=== PATIENT | male | born 1965 | race Asian ===

== ENCOUNTER 2020-04-22 11:47 | Emergency (ER) | payer MEDICARE, SELFPAY ==
--- NOTE | 2020-04-22 | ECG_ITS ---
Test Reason : CHEST PAIN Blood Pressure : / mmHG Vent. Rate : 084 BPM Atrial Rate : 084 BPM P-R Int : 156 ms QRS Dur : 084 ms QT Int : 364 ms P-R-T Axes : 023 008 001 degrees QTc Int : 430 ms Normal sinus rhythm Normal ECG When compared with ECG of 25-APR-2012 06:54, No significant change was found Referred By: Generic ED Physician Electronically Signed By:COCO BOOTH MD
[2020-04-22 11:58] VITALS: BP 148/91; PULSE 84; RESP 18; TEMP 36.6; O2SAT 97; BMI 26.6
--- NOTE | 2020-04-22 13:20 | XR_ITS ---
EXAMINATION: XR CHEST CLINICAL INFORMATION: Chest pain COMPARISON: Chest radiographs 10/23/2018, 09/12/2017 TECHNIQUE: Portable upright AP view of the chest was obtained. FINDINGS: The lungs are clear. There is no pneumothorax, pleural reaction, airspace consolidation, or effusion. The heart is normal in size. The hilar and mediastinal contours are normal. No visible acute bony abnormality. XR/XR chest 1V IMPRESSION: Unremarkable examination.
--- NOTE | 2020-04-22 13:23 | ED.CHESTPAIN ---
HPI - Chest Pain General Chief Complaint: Chest Pain Stated Complaint: chest pain Time Seen by Provider: 04/22/20 13:20 Source: patient Mode of arrival: ambulatory Limitations: no limitations History of Present Illness HPI narrative: 54 y/o male with history of hyperlipidemia, never smoker and occasional drinker who presents with acute onset of substernal chest pain that started last night at 2-3am. It started when he woke up to go to the bathroom. He states it starts in his epigastric area and radiates up into his chest. No nausea, vomiting, abdominal pain, SOB, neck or jaw pain. No personal or family history of heart disease. He states he has a history of GERD but has not had symptoms in years. He ate lobster dipped in hot sauce last night. Related Data Previous Rx's Medication Instructions Recorded pantoprazole [Protonix] 40 mg PO DAILY #14 tab 04/22/20 Allergies Allergy/AdvReac Type Severity Reaction Status Date / Time codeine [Codeine] Allergy Mild NAUSEA AND Verified 04/22/20 12:02 VOMITING acetaminophen [Percocet] Allergy Unknown Itching Verified 04/22/20 12:02 oxycodone [Percocet] Allergy Unknown Itching Verified 04/22/20 12:02 Review of Systems Review of Systems: Constitutional: No Fever, No Chills ENT/Mouth: No sore throat, No Rhinorrhea, No Swallowing Difficulty Eyes: No Eye Pain, No Swelling, No Redness Cardiovascular: + Chest Pain, No SOB, No Orthopnea, No Edema Respiratory: No Cough, No Sputum, No Wheezing, No dyspnea Gastrointestinal: No Nausea, No Vomiting, No Diarrhea, No abdominal Pain Genitourinary: No Dysuria, No Urinary Frequency, No Hematuria Musculoskeletal: No joint pain, No Myalgias Skin: No Skin Lesions, No rash Neuro: No Weakness, No Numbness, No Dizziness, + Headache Psych: + Anxiety/Panic, No Depression Heme/Lymph: No Bruising, No Lymphadenopathy Endocrine: No Polyuria, No Polydipsia PMFSH Past Medical History Attestation statement: The following information was validated with the patient. Medical History Patient denies medical problems Social History Social History Alcohol intake: never Smoking Status: Never smoker Use of substances other than those prescribed or required for medical reasons: No Advance Directives: No Advance Directives Information Provided: Yes Physical Exam Vital Signs: Vital Signs: Last Vital Signs Temp 98.3 F 04/22/20 15:00 Pulse 75 04/22/20 15:00 Resp 16 04/22/20 15:00 BP 140/95 H 04/22/20 15:00 Pulse Ox 97 04/22/20 15:00 Body Mass Index 26.6 Appearance: Alert. Oriented X3. No acute distress. Eyes: Pupils equal, round and reactive to light. ENT: Pharynx normal. Neck: Normal inspection. Neck supple. CVS: Normal heart rate and rhythm. Pulses normal. Respiratory: No respiratory distress. Breath sounds normal. Abdomen: Soft and nontender. +BS x4 Skin: Skin warm and dry. Normal skin color. Normal skin turgor. No rashes. Extremities: No lower extremity edema. Neuro: Oriented X 3. No motor deficit. No sensory deficit. Course Course Course Narrative: 54 y/o male presenting with substernal chest pain that starts in his epigastric area. Started several hour after he ate spicy food and then laid down. Suspect GERD but will r/o ACS with EKG, tropoinin. Mild pain at this time. Vitally stable and in no distress. Will treat with GI cocktail and reassess. Reevaluation(s) Reevaluation #1: Complete resolution after GI cocktail. EKG showed no acute signs of ischemia, troponin negative. He feels much better and is stable for discharge. MDM - Chest Pain Differential Diagnosis Differential diagnosis: Likely stable angina, unstable angina pectoris, atypical chest pain, costochondritis, chest pain and biliary colic Medical Records Data Attestation: I reviewed the patient's medical records. Lab Data Attestation: I reviewed the patient's lab results. Result diagrams: 04/22/20 13:39 04/22/20 13:39 Labs: Lab Results 04/22/20 04/22/20 04/22/20 Range/Units 13:39 13:39 13:39 WBC 6.8 (4.8-10.8) X10*3/uL RBC 5.09 (4.60-5.80) X10*6/uL Hgb 15.3 (14.0-18.0) g/dl Hct 44.4 (42-52) % MCV 87.2 (80-98) fL MCH 30.1 (27.0-33.0) pg MCHC 34.5 (31.0-36.0) g/dl RDW 12.9 (11.0-16.0) % Plt Count 175 (160-400) X10*3/uL MPV 9.8 (9.4-12.4) fL Immature Gran % (Auto) 0.4 (0.0-0.4) % Neut % (Auto) 68.2 (45-73) % Lymph % (Auto) 21.9 (20-40) % [place] % (Auto) 7.0 (2-11) % Eos % (Auto) 2.1 (0-4) % Baso % (Auto) 0.4 (0-2) % Lymph # (Auto) 1.5 (1.2-4.9) X10*3/uL [place] # (Auto) 0.5 (0.1-1.2) X10*3/uL Eos # (Auto) 0.1 (0.0-0.4) X10*3/uL Baso # (Auto) 0.0 (0.0-0.2) X10*3/uL Abs Immat Gran (auto) 0.03 (0.00-0.03) X10*3/uL Absolute Neuts (auto) 4.6 (2.0-8.3) X10*3/uL Absolute Nucleated RBC 0.000 (0.0-0.012) X10*3/uL Nucleated RBC % (auto) 0.0 (0.0-0.2) /100WBC Hold Blue Top Sodium 138 (135-145) mmol/L Potassium 4.0 (3.3-5.1) mmol/l Chloride 103 (96-108) mmol/L Carbon Dioxide 27 (22-29) mmol/L Anion Gap 12 (12-20) BUN 17 H (9-16) mg/dL Creatinine 0.99 (0.5-1.4) mg/dL Estim Creat Clear Calc 76.9 Estimated GFR > 60 Random Glucose 98 (60-115) mg/dL Calcium 9.6 (8.4-10.2) mg/dL Troponin I High Sens < 3.5 (<3.5-35.0) ng/L B-Natriuretic Peptide < 10 (<100) pg/mL 04/22/20 Range/Units 13:39 WBC (4.8-10.8) X10*3/uL RBC (4.60-5.80) X10*6/uL Hgb (14.0-18.0) g/dl Hct (42-52) % MCV (80-98) fL MCH (27.0-33.0) pg MCHC (31.0-36.0) g/dl RDW (11.0-16.0) % Plt Count (160-400) X10*3/uL MPV (9.4-12.4) fL Immature Gran % (Auto) (0.0-0.4) % Neut % (Auto) (45-73) % Lymph % (Auto) (20-40) % [place] % (Auto) (2-11) % Eos % (Auto) (0-4) % Baso % (Auto) (0-2) % Lymph # (Auto) (1.2-4.9) X10*3/uL [place] # (Auto) (0.1-1.2) X10*3/uL Eos # (Auto) (0.0-0.4) X10*3/uL Baso # (Auto) (0.0-0.2) X10*3/uL Abs Immat Gran (auto) (0.00-0.03) X10*3/uL Absolute Neuts (auto) (2.0-8.3) X10*3/uL Absolute Nucleated RBC (0.0-0.012) X10*3/uL Nucleated RBC % (auto) (0.0-0.2) /100WBC Hold Blue Top SEE NOTE Sodium (135-145) mmol/L Potassium (3.3-5.1) mmol/l Chloride (96-108) mmol/L Carbon Dioxide (22-29) mmol/L Anion Gap (12-20) BUN (9-16) mg/dL Creatinine (0.5-1.4) mg/dL Estim Creat Clear Calc Estimated GFR Random Glucose (60-115) mg/dL Calcium (8.4-10.2) mg/dL Troponin I High Sens (<3.5-35.0) ng/L B-Natriuretic Peptide (<100) pg/mL ECG Data ECG #1: ECG interpretation date: 04/22/20 Interpretation: EKG with normal sinus rhythm 84 bpm, normal MA interval. no ST elevations Scores Heart Score History: -1- moderately suspicious ECG: -0- normal Age: -1- >45 - <65 Risk factory: -0- no risk factors known Troponin: -0- < or = normal limit Score: 2 Risk: 1.7% Critical Care Time Critical Care Time Critical Care Time: No Discharge Plan Discharge Clinical Impression: Chest pain due to GERD Patient Disposition: Home, Self-Care Instructions: Gastroesophageal Reflux Disease (ED) Additional Instructions: Your workup today points AGAINST cardiac chest pain. It is likely that your pain is due to reflux of acidic contants from your stomach up into your esophagus. Avoid spicy foods. Start taking the prescribed antiacid medication. Try Pepto-Bismol or TUMS as needed. Do not lay down for 60 minutes after eating. Follow up with your doctor next week. If you develop recurrent chest pain, or develop shortness of breath or any other concerning symptoms come back to the ER for further evaluation. Prescriptions: New pantoprazole [Protonix] 40 mg tablet,delayed release (DR/EC) 40 mg PO DAILY Qty: 14 RF: 0 Referrals: Brook Valverde MD [Physician] - 2 weeks
[2020-04-22 13:41] VITALS: BP 146/93; PULSE 74; RESP 16; TEMP 36.6; O2SAT 98
[2020-04-22 13:45] LABS: MANUAL DIFF FLAG NO
[2020-04-22 13:46] LABS: Basophils Percent Auto 0.4 % (0-2); Eosinophils Absolute Auto 0.1 X10*3/uL (0.0-0.4); Eosinophils Percent Auto 2.1 % (0-4); Hematocrit 44.4 % (42-52); Hemoglobin 15.3 g/dl (14.0-18.0); Imm Gran Abs Auto 0.03 X10*3/uL (0.00-0.03); Imm Gran Pct Auto 0.4 % (0.0-0.4); Lymphocytes Absolute Auto 1.5 X10*3/uL (1.2-4.9); Lymphocytes Percent Auto 21.9 % (20-40); Mean Corpuscular HGB Conc 34.5 g/dl (31.0-36.0); Mean Corpuscular Hemoglobin 30.1 pg (27.0-33.0); Mean Corpuscular Volume 87.2 fL (80-98); Mean Platelet Volume 9.8 fL (9.4-12.4); Monocytes Absolute Auto 0.5 X10*3/uL (0.1-1.2); Neutrophils Absolute Auto 4.6 X10*3/uL (2.0-8.3); Neutrophils Percent Auto 68.2 % (45-73); Platelet Count 175 X10*3/uL (160-400); Red Blood Count 5.09 X10*6/uL (4.60-5.80); Red Cell Distribution Width 12.9 % (11.0-16.0); White Blood Count 6.8 X10*3/uL (4.8-10.8)
[2020-04-22 14:14] LABS: Anion Gap 12 (12-20); Blood Urea Nitrogen 17 mg/dL (9-16); Calcium 9.6 mg/dL (8.4-10.2); Carbon Dioxide 27 mmol/L (22-29); Chloride 103 mmol/L (96-108); Creatinine Clr Calc Pharmacy 76.9; Estimated Glomerular Filt Rate > 60; Glucose Random 98 mg/dL (60-115); Sodium 138 mmol/L (135-145)
[2020-04-22 14:22] LABS: B Type Natriuretic Peptide < 10 pg/mL (<100); Troponin-I High Sensitivity < 3.5 ng/L (<3.5-35.0)
[2020-04-22] MEDS: Magnesium Hydrox/Alum Hydrox 30 ML ORAL.SUSP PO (14:26)
[2020-04-22] MEDS: Omeprazole 40 MG CAPSULE.DR PO (14:27)
[2020-04-22] MEDS: Lidocaine HCl Viscous 2 % 15 ML SOLUTION MUCOUS MEM (14:27)
[2020-04-22 15:00] VITALS: BP 140/95; PULSE 75; RESP 16; TEMP 36.8; O2SAT 97
== END 2020-04-22 15:20 | disposition home or self-care (01) ==
PROVIDERS: Physician Assistant; Emergency Provider Emergency Medicine Emergency Medical Services; PCP Internal Medicine
DX: R07.9 Chest pain, unspecified (principal); K21.9 Gastro-esophageal reflux disease without esophagitis; Z79.899 Other long term (current) drug therapy
CPT/HCPCS: 36415; 71045; 80048; 83880; 84484; 85025; 93005; 99284

== ENCOUNTER 2020-05-27 12:16 | Emergency (ER) | payer MEDICARE, SELFPAY ==
--- NOTE | 2020-05-27 | XR_ITS ---
EXAMINATION: XR CHEST CLINICAL INFORMATION: Chest pain. COMPARISON: Chest 04/22/2020 TECHNIQUE: 2 views of the chest were obtained. FINDINGS: The lungs are well-expanded and clear of acute process. Heart size and pulmonary vascularity is normal. There is mild excess scoliosis mid dorsal spine. No lytic process. XR/XR chest 2V IMPRESSION: No acute cardiopulmonary process seen. Mild dextroscoliosis dorsal spine
[2020-05-27 12:49] VITALS: BP 128/88; PULSE 73; RESP 12; TEMP 36.6; O2SAT 98; BMI 26.3
--- NOTE | 2020-05-27 12:55 | ECG_ITS ---
Test Reason : CHEST PAIN Blood Pressure : / mmHG Vent. Rate : 073 BPM Atrial Rate : 073 BPM P-R Int : 160 ms QRS Dur : 074 ms QT Int : 374 ms P-R-T Axes : 024 005 004 degrees QTc Int : 412 ms Normal sinus rhythm Normal ECG When compared with ECG of 22-APR-2020 11:55, No significant change was found Referred By: Generic ED Physician Electronically Signed By:MARLA OBRIEN
--- NOTE | 2020-05-27 17:35 | ED_ITS ---
HPI - Chest Pain General Chief Complaint: Chest Pain Stated Complaint: chest pain Time Seen by Provider: 05/27/20 17:19 Source: patient Mode of arrival: ambulatory Limitations: no limitations History of Present Illness HPI narrative: Patient presents to the ED for epigastric abdominal pain going up to chest that occurred around 11am this morning and resolved by the time he came to the ED. patient states epigastric ( burning) pain has been occurring for the past 3 weeks and worsens after eating every meal. patient states no cardiac or pulmonary history. patient states panatoprazole has not improved symptoms. MD complaint: chest pain Related Data Previous Rx's Medication Instructions Recorded pantoprazole [Protonix] 40 mg PO DAILY #14 tab 04/22/20 famotidine [Pepcid] 20 mg PO DAILY #20 tab 05/27/20 Allergies Allergy/AdvReac Type Severity Reaction Status Date / Time codeine [Codeine] Allergy Mild NAUSEA AND Verified 04/22/20 12:02 VOMITING acetaminophen [Percocet] Allergy Unknown Itching Verified 04/22/20 12:02 oxycodone [Percocet] Allergy Unknown Itching Verified 04/22/20 12:02 Review of Systems Review of Systems: Yes all other systems are reviewed and are negative Constitutional: Constitutional: Reports as per HPI and Reports no additional constitutional complaints Eyes: Eyes: Reports as per HPI and Reports no additional eye complaints ENT: Reports system reviewed and no additional complaints, except as documented and Reports as per HPI Cardiovascular: Cardiovascular: Reports as per HPI, Reports no additional cardiovascular complaints and Reports chest pain (acid burning sensation) Respiratory: Respiratory: Reports as per HPI and Reports no additional respiratory complaints Gastrointestinal: Gastrointestinal: Reports as per HPI, Reports no additional gastrointestinal complaints, Reports dyspepsia and Reports heartburn Musculoskeletal: Musculoskeletal: Reports no additional musculoskeletal complaints and Reports as per HPI Neurologic: Reports system reviewed and no additional complaints, except as documented and Reports as per HPI Psychiatric: Psychiatric: Reports no additional psychiatric complaints and Reports as per HPI PMF Past Medical History Medical History Fatty liver GERD (gastroesophageal reflux disease) High cholesterol Social History Social History Alcohol intake: former Smoking Status: Never smoker Smoked in Last 30 Days: No Use of substances other than those prescribed or required for medical reasons: No Advance Directives: No Advance Directives Information Provided: No Physical Exam Vital Signs: Vital Signs: Last Vital Signs Temp 98.1 F 05/27/20 21:14 Pulse 64 05/27/20 21:14 Resp 20 05/27/20 21:14 BP 124/90 H 05/27/20 21:14 Pulse Ox 97 05/27/20 21:14 Body Mass Index 26.3 Const: General: cooperative, healthy appearing, comfortable, no acute distress, well developed, alert, awake and Physically active Orientation/consciousness: patient oriented x3 HENMT: Head: Yes normal to inspection, Yes No palpable skull fracture present, Yes normocephalic and Yes atraumatic Eyes: General: appearance normal, both eyes and all related structures Neck: Neck: Yes normal visual inspection, Yes full ROM, Yes no lymp hadenopathy, Yes no meningeal signs, Yes trachea midline, Yes supple and No tender Chest: Chest palpation & inspection: normal inspection of the chest and normal palpation of entire chest wall Resp: Effort & Inspection: normal respiratory effort and able to speak in complete sentences Auscultation: clear to auscultation bilaterally Cardio: Jugular venous distension: no JVD Heart sounds: S1 normal heart sound present and S2 normal heart sound present GI: Inspection: Yes normal to inspection and No abdominal wall ecchymosis Palpation (GI): Soft to palpation, not firm, nontender, no guarding and not rigid : General: No CVA tenderness and Yes no CVA tenderness Back/Spine/Pelvis: Back: no CVA tenderness, No CVA tenderness and No back tenderness Skin: General skin exam: no rashes or lesions noted and elasticity normal Neuro: General: patient oriented x3, gait normal, no meningeal signs and CN's II-XI intact bilaterally Cranial nerves: Yes CN's II-XII intact bilaterally Extrem: General: Yes normal to inspection and Yes full ROM Psych: Appearance: grossly normal, well kempt and not disheveled Course Course Course Narrative: most likely patient is having GERD exacerbation. due to atypical presentation of the chest pain, patient will have ekg, labs including D-dimer and troponin, with chest xray. patietn will be given GI cocktai. Reevaluation(s) Reevaluation #1: Patient's symptoms resolved after having GI cocktail. Patient has both troponin were negative. Patient's D-dimer negative. Patient Wells score is 0. Patient informed to follow-up with financial reporting analyst. Time: 22:27 MDM - Chest Pain MDM Narrative Medical decision making narrative: Chest pain due to GERD Lab Data Result diagrams: 05/27/20 17:54 05/27/20 17:53 Labs: Lab Results 05/27/20 05/27/20 05/27/20 Range/Units 17:53 17:53 17:53 WBC (4.8-10.8) X10*3/uL RBC (4.60-5.80) X10*6/uL Hgb (14.0-18.0) g/dl Hct (42-52) % MCV (80-98) fL MCH (27.0-33.0) pg MCHC (31.0-36.0) g/dl RDW (11.0-16.0) % Plt Count (160-400) X10*3/uL MPV (9.4-12.4) fL Immature Gran % (Auto) (0.0-0.4) % Neut % (Auto) (45-73) % Lymph % (Auto) (20-40) % [place] % (Auto) (2-11) % Eos % (Auto) (0-4) % Baso % (Auto) (0-2) % Lymph # (Auto) (1.2-4.9) X10*3/uL [place] # (Auto) (0.1-1.2) X10*3/uL Eos # (Auto) (0.0-0.4) X10*3/uL Baso # (Auto) (0.0-0.2) X10*3/uL Abs Immat Gran (auto) (0.00-0.03) X10*3/uL Absolute Neuts (auto) (2.0-8.3) X10*3/uL Absolute Nucleated RBC (0.0-0.012) X10*3/uL Nucleated RBC % (auto) (0.0-0.2) /100WBC PT 11.1 (10.8-13.0) SEC INR 0.9 (0.9-1.1) APTT 33.5 (24.1-38.0) SEC D-Dimer < 200 NG/ML Sodium 142 (135-145) mmol/L Potassium 4.5 (3.3-5.1) mmol/l Chloride 103 (96-108) mmol/L Carbon Dioxide 32 H (22-29) mmol/L Anion Gap 12 (12-20) BUN 17 H (9-16) mg/dL Creatinine 1.20 (0.5-1.4) mg/dL Estim Creat Clear Calc 63.5 Estimated GFR > 60 Random Glucose 94 (60-115) mg/dL Calcium 9.4 (8.4-10.2) mg/dL Total Bilirubin 0.8 (0.0-1.0) mg/dL Direct Bilirubin 0.3 (0.0-0.5) mg/dL AST 27 (5-37) U/L ALT 52 H (0-40) U/L Alkaline Phosphatase 69 (39-117) U/L Troponin I High Sens (<3.5-35.0) ng/L Total Protein 7.7 (6.5-8.0) g/dL Albumin 5.0 (3.5-5.0) g/dL Lipase 17 (8-78) U/L 05/27/20 05/27/20 05/27/20 Range/Units 17:54 17:54 21:14 WBC 5.3 (4.8-10.8) X10*3/uL RBC 5.31 (4.60-5.80) X10*6/uL Hgb 15.6 (14.0-18.0) g/dl Hct 46.8 (42-52) % MCV 88.1 (80-98) fL MCH 29.4 (27.0-33.0) pg MCHC 33.3 (31.0-36.0) g/dl RDW 12.9 (11.0-16.0) % Plt Count 182 (160-400) X10*3/uL MPV 10.1 (9.4-12.4) fL Immature Gran % (Auto) 0.2 (0.0-0.4) % Neut % (Auto) 54.1 (45-73) % Lymph % (Auto) 32.3 (20-40) % [place] % (Auto) 7.7 (2-11) % Eos % (Auto) 4.9 H (0-4) % Baso % (Auto) 0.8 (0-2) % Lymph # (Auto) 1.7 (1.2-4.9) X10*3/uL [place] # (Auto) 0.4 (0.1-1.2) X10*3/uL Eos # (Auto) 0.3 (0.0-0.4) X10*3/uL Baso # (Auto) 0.0 (0.0-0.2) X10*3/uL Abs Immat Gran (auto) 0.01 (0.00-0.03) X10*3/uL Absolute Neuts (auto) 2.9 (2.0-8.3) X10*3/uL Absolute Nucleated RBC 0.000 (0.0-0.012) X10*3/uL Nucleated RBC % (auto) 0.0 (0.0-0.2) /100WBC PT (10.8-13.0) SEC INR (0.9-1.1) APTT (24.1-38.0) SEC D-Dimer NG/ML Sodium (135-145) mmol/L Potassium (3.3-5.1) mmol/l Chloride (96-108) mmol/L Carbon Dioxide (22-29) mmol/L Anion Gap (12-20) BUN (9-16) mg/dL Creatinine (0.5-1.4) mg/dL Estim Creat Clear Calc Estimated GFR Random Glucose (60-115) mg/dL Calcium (8.4-10.2) mg/dL Total Bilirubin (0.0-1.0) mg/dL Direct Bilirubin (0.0-0.5) mg/dL AST (5-37) U/L ALT (0-40) U/L Alkaline Phosphatase (39-117) U/L Troponin I High Sens < 3.5 < 3.5 (<3.5-35.0) ng/L Total Protein (6.5-8.0) g/dL Albumin (3.5-5.0) g/dL Lipase (8-78) U/L ECG Data ECG #1: Interpretation: Normal sinus rhythm. Normal EKG. Ventricular rate 73. CA interval 160. QRS 74. QTC 412. Negative STEMI Discharge Plan Discharge Clinical Impression: Chest pain due to GERD Patient Disposition: Home, Self-Care Instructions: Gastroesophageal Reflux Disease (ED) Additional Instructions: Return to ED for any chest pain, shortness of breath, fever, chills, right upper quadrant pain, dizziness, headache, swelling of lower extremities, calf pain, dysuria, hematuria, flank pain, abdominal pain, or any other concerning symptoms. Prescriptions: New famotidine [Pepcid] 20 mg tablet 20 mg PO DAILY Qty: 20 RF: 0 No Action pantoprazole [Protonix] 40 mg tablet,delayed release (DR/EC) 40 mg PO DAILY Qty: 14 RF: 0 Referrals: Gama Frausto [Physician] - 2 days (Consistent GERD like symptoms. May need endoscopy) Interventions: ED Discharge Assessment Last Done: 05/27/20 23:13 Discharge Date/Time: 05/27/20 23:14 Print Language: [place]
[2020-05-27 18:09] LABS: MANUAL DIFF FLAG NO
[2020-05-27 18:13] LABS: Basophils Percent Auto 0.8 % (0-2); Eosinophils Absolute Auto 0.3 X10*3/uL (0.0-0.4); Eosinophils Percent Auto 4.9 % (0-4); Hematocrit 46.8 % (42-52); Hemoglobin 15.6 g/dl (14.0-18.0); Imm Gran Abs Auto 0.01 X10*3/uL (0.00-0.03); Imm Gran Pct Auto 0.2 % (0.0-0.4); Lymphocytes Absolute Auto 1.7 X10*3/uL (1.2-4.9); Lymphocytes Percent Auto 32.3 % (20-40); Mean Corpuscular HGB Conc 33.3 g/dl (31.0-36.0); Mean Corpuscular Hemoglobin 29.4 pg (27.0-33.0); Mean Corpuscular Volume 88.1 fL (80-98); Mean Platelet Volume 10.1 fL (9.4-12.4); Monocytes Absolute Auto 0.4 X10*3/uL (0.1-1.2); Monocytes Percent Auto 7.7 % (2-11); Neutrophils Absolute Auto 2.9 X10*3/uL (2.0-8.3); Neutrophils Percent Auto 54.1 % (45-73); Platelet Count 182 X10*3/uL (160-400); Red Blood Count 5.31 X10*6/uL (4.60-5.80); Red Cell Distribution Width 12.9 % (11.0-16.0); White Blood Count 5.3 X10*3/uL (4.8-10.8)
[2020-05-27 18:14] LABS: INTERNATIONAL NORM RATIO 0.9 (0.9-1.1); Prothrombin Time 11.1 SEC (10.8-13.0)
[2020-05-27 18:16] LABS: Partial Thromboplastin Time 33.5 SEC (24.1-38.0)
[2020-05-27 18:18] LABS: D Dimer < 200 NG/ML
[2020-05-27] MEDS: Magnesium Hydrox/Alum Hydrox 30 ML ORAL.SUSP PO (18:18)
[2020-05-27] MEDS: Famotidine/PF 20 MG/2 ML VIAL IVPUSH (18:18)
[2020-05-27] MEDS: PHENobarb/Hyoscy/Atropine/Scop 10 ML ELIXIR PO (18:18)
[2020-05-27 18:19] VITALS: BP 145/85; PULSE 65; RESP 18; TEMP 36.9; O2SAT 98
[2020-05-27 18:31] LABS: Alanine Aminotransferase 52 U/L (0-40); Alkaline Phosphatase 69 U/L (39-117); Anion Gap 12 (12-20); Aspartate Amino Transferase 27 U/L (5-37); Bilirubin Direct 0.3 mg/dL (0.0-0.5); Bilirubin Total 0.8 mg/dL (0.0-1.0); Blood Urea Nitrogen 17 mg/dL (9-16); Calcium 9.4 mg/dL (8.4-10.2); Carbon Dioxide 32 mmol/L (22-29); Chloride 103 mmol/L (96-108); Creatinine Clr Calc Pharmacy 63.5; Estimated Glomerular Filt Rate > 60; Glucose Random 94 mg/dL (60-115); Lipase 17 U/L (8-78); Potassium 4.5 mmol/l (3.3-5.1); Sodium 142 mmol/L (135-145); Total Protein 7.7 g/dL (6.5-8.0)
[2020-05-27 18:37] LABS: Troponin-I High Sensitivity < 3.5 ng/L (<3.5-35.0)
[2020-05-27] MEDS: Lidocaine HCl Viscous 2 % 15 ML SOLUTION MUCOUS MEM (19:00)
[2020-05-27 21:14] VITALS: BP 124/90; PULSE 64; RESP 20; TEMP 36.7; O2SAT 97
[2020-05-27 21:57] LABS: Troponin-I High Sensitivity < 3.5 ng/L (<3.5-35.0)
== END 2020-05-27 23:14 | disposition home or self-care (01) ==
PROVIDERS: Physician Assistant; Emergency Provider Emergency Medicine; PCP Internal Medicine
DX: K21.9 Gastro-esophageal reflux disease without esophagitis (principal); R10.9 Unspecified abdominal pain; R07.9 Chest pain, unspecified
CPT/HCPCS: 36415; 71046; 80053; 80076; 82248; 83690; 84484; 85025; 85379; 85610; 85730; 93005; 96374; 99284

== ENCOUNTER 2023-05-20 13:16 | Outpatient (REF) | payer MEDICARE, SELFPAY ==
--- NOTE | 2023-05-20 13:19 | EMG_ITS ---
Chief complaint: Chronic 13 years of bilateral feet pain. He had back pain at that time as well which has now improved. He had plantar fascia injection 3 months ago which resolved the pain under right side. Left foot continues to be painful. Reason for referral: Evaluate for neuropathy Referred by: Wes GRIJALVA Procedure done: Bilateral lower extremity NCS/EMG Precautions and/or limitations: None The limb temperature was monitored continuously and remained between 32-36 degrees C during the performance of the NCS. Nerve Conduction Studies Anti Sensory Summary Table ?Stim Site NR Onset (ms) Norm Onset (ms) Peak (ms) Norm Peak (ms) O-P Amp (?V) Norm O-P Amp Site1 Site2 Delta-0 (ms) Dist (cm) William (m/s) Norm William (m/s) Left Sural Anti Sensory (Lat Mall) Calf ? 3.2 3.7 <4.0 15.9 >5.0 Calf Lat Mall 3.2 14.0 44 Right Sural Anti Sensory (Lat Mall) Calf ? 3.3 3.9 <4.0 16.1 >5.0 Calf Lat Mall 3.3 14.0 42 Motor Summary Table ?Stim Site NR Onset (ms) Norm Onset (ms) O-P Amp (mV) Norm O-P Amp iAmp (mV) Amp (1st) (%) Site1 Site2 Delta-0 (ms) Dist (cm) William (m/s) Norm William (m/s) Left Peroneal Motor (Ext Dig Brev) Ankle ? 4.8 <4.0 4.5 >2.5 5.3 100.0 Ankle Ext Dig Brev 4.8 0.0 B Fib ? 11.3 4.4 5.4 97.8 B Fib Ankle 6.5 32.0 49 >40 Poplt ? 12.0 4.6 5.7 102.2 Poplt B Fib 0.7 5.0 71 >40 Right Peroneal Motor (Ext Dig Brev) Ankle ? 7.5 <4.0 2.8 >2.5 2.8 100.0 Ankle Ext Dig Brev 7.5 31.0 41 B Fib ? 15.9 1.9 1.9 67.9 B Fib Ankle 8.4 5.0 6 >40 Poplt ? 16.9 2.0 2.0 71.4 Poplt B Fib 1.0 0.0 >40 Left Tibial Motor (Abd Mock Brev) Ankle ? 4.9 <5 21.8 >2.5 30.1 100.0 Ankle Abd Mock Brev 4.9 0.0 Knee ? 13.3 17.4 23.1 79.8 Knee Ankle 8.4 37.0 44 >40 Right Tibial Motor (Abd Mock Brev) Ankle ? 3.8 <5 17.5 >2.5 23.4 100.0 Ankle Abd Mock Brev 3.8 41.0 108 Knee ? 12.7 15.9 21.3 90.9 Knee Ankle 8.9 0.0 >40 EMG ?Side Muscle Nerve Root Ins Act Fibs Psw Amp Dur Poly Recrt Int Pat Comment Right AntTibialis Dp Br Peron L4-5 Nml Nml Nml Nml Nml 0 Nml Complete Right VastusMed Femoral L2-4 Nml Nml Nml Nml Nml 0 Nml Complete FINDINGS: Right peroneal nerve showed prolonged distal latency, smaller amplitude compared to left and slow conduction velocity across the fibular neck. Left peroneal nerve showed prolonged distal latency, normal amplitude and normal conduction velocity. All other nerves tested were within normal. Concentric needle EMG was attempted on lower extremity. Patient could not tolerate further testing due to muscle cramps in his legs. IMPRESSION: 1. This is an incomplete study. 2. NCS did not show abnormalities on sural sensory nerves. 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 Question significance of abnormal left peroneal nerve. 3. Incomplete needle EMG. Therefore cannot rule out radiculopathy. Thank you for your kind referral. Lisa Tamayo MD, MADHAVI Board Certified, [place] [employer] and [employer] (ABPMR) Board Certified, [place] [employer] Electro[employer] (ABEM) [place] [id number] [facility]
== END 2023-05-20 13:17 | disposition home or self-care (01) ==
LOC: HO.NEURO 13:16
PROVIDERS: PCP Internal Medicine; Visit Provider Physician Assistant
DX: M79.661 Pain in right lower leg (principal); M79.662 Pain in left lower leg; G62.9 Polyneuropathy, unspecified
CPT/HCPCS: 95885; 95909

== ENCOUNTER → 2023-05-20 13:19 | Outpatient (BNV) | payer MEDICARE, SELFPAY | PROVIDERS: PCP Internal Medicine; Visit Provider Physical Medicine & Rehabilitation | DX: R94.131 Abnormal electromyogram [EMG] (principal); S84.11XA Injury of peroneal nerve at lower leg level, right leg, initial encounter | CPT/HCPCS: 95885; 95909 ==